=== PATIENT | male | born 1995 | race African-American/Black ===

== ENCOUNTER 2017-04-18 07:04 | Emergency (ER) | payer MEDICAID ==
[~2017-04-18] VITALS: Ht 170.2 cm; Wt 134.7 kg
[~2017-04-18 07:04] MED LIST: AZEL137S7; CETI1TAB36 PO; DEXTSYP8 GT; DOXY-216 PO; FLU05NSL; HYDR-4683 PO; IBUP600T27 PO; IPRA0.035 NEB; LEVA1.256 IN; LEVAAER4 IN; METH4PAK PO; MON10T PO; NAPR500T4 PO; PRED-188 PO; VITAMIN D 2 PO; [UNRECOGNIZED DRUG - CODE] IJ; [UNRECOGNIZED DRUG - CODE] PO
[2017-04-18] MEDS ORDERED: IPRATROPIUM BROM 0.5 MG/2.5ML INH SOL NEB ONE (10:45)
[2017-04-18] MEDS ORDERED: ALBUTEROL SULF 2.5 MG/0.5ML(0.5%) NEB SOLN NEB ONE (10:45)
[2017-04-18] MEDS ORDERED: methylPREDNISolone SOD SUCC 125 MG/2 ML VL IM ONE (10:45)
[2017-04-18 10:55] VITALS: BP 130/87
== END 2017-04-18 11:38 | disposition home or self-care (01) ==
LOC: ER 07:04
DX: J45.901 Unspecified asthma with (acute) exacerbation (principal)
CPT/HCPCS: 71020; 94640; 96372; 99284; J2930

== ENCOUNTER 2019-08-05 16:33 | Emergency (ER) | payer MEDICAID ==
[~2019-08-05] VITALS: Ht 170.2 cm; Wt 131.5 kg
[~2019-08-05 16:33] MED LIST changes: +DEXT1SYP9 GT; -DEXTSYP8 GT; -DOXY-216 PO; +DOXY-286 PO; -HYDR-4683 PO; +HYDR-4833 PO; +NAPR500T31 PO; -NAPR500T4 PO; +[UNRECOGNIZED DRUG - CODE] PO; -[UNRECOGNIZED DRUG - CODE] PO
[2019-08-05 17:50] LABS: Basophils # (auto) 0 uL; Basophils % (auto) 0.1 % (0.0-2.0); Eosinophils # (auto) 0 uL; Hematocrit 43.3 % (41.0-53.0); Hemoglobin 14.4 g/dL (13.5-17.5); Lymphocytes # (auto) 2.3 uL; Lymphocytes % (auto) 24.3 % (10.0-50.0); Mean Corpuscular Hgb Conc. 33.1 g/dL (32.0-36.0); Mean Corpuscular Volume 90.4 fL (80.0-100.0); Monocytes # (auto) 0.8 uL; Monocytes % (auto) 8.2 % (0.0-12.0); Neutrophils # (auto) 6.5 uL; Neutrophils % (auto) 67.4 % (37.0-80.0); Nucleated Red Blood Cells % 0.1 %; Platelet Count (auto) 328 10^3/uL (140-450); Red Blood Cells 4.79 10^6/uL (4.5-5.90); Red Cell Distribution Width 13.3 % (11.8-14.3); White Blood Cell 9.6 10^3/uL (4.4-10.8)
[2019-08-05 18:08] LABS: Albumin 3.8 g/dL (3.4-5.0); Anion Gap 8 (5-15); Blood Urea Nitrogen 9 mg/dL (7-18); Calcium 8.7 mg/dL (8.5-10.1); Carbon Dioxide 26 mmol/L (21-32); Chloride 105 mmol/L (98-107); Glucose 96 mg/dL (74-106); Potassium 3.6 mmol/L (3.5-5.1); Sodium 139 mmol/L (136-145)
[2019-08-05 18:14] LABS: Alanine Aminotransferase 31 U/L (16-61); Alkaline Phosphatase 56 U/L (45-117); Aspartate Aminotransferase 22 U/L (15-37); BUN/Creatinine Ratio 10.2; Bilirubin, Total 0.3 mg/dL (0.2-1.0); GFR African American 135 mL/min; GFR Non-African American 111 mL/min; Total Protein 7.7 g/dL (6.4-8.2)
[2019-08-05] MEDS ORDERED: HYDROcodone-ACET 7.5/325MG TAB PO ONE (23:15)
[2019-08-05] MEDS ORDERED: IBUPROFEN 400 MG TAB PO ONE (23:15)
[2019-08-06 01:00] VITALS: BP 142/91
== END 2019-08-06 01:24 | disposition home or self-care (01) ==
LOC: ER 16:33
DX: R07.89 Other chest pain (principal); J45.909 Unspecified asthma, uncomplicated; Z79.899 Other long term (current) drug therapy
CPT/HCPCS: 36415; 71046; 80053; 84484; 85025; 93005